=== PATIENT | male | born 1980 ===

== ENCOUNTER 2017-05-14 21:17 | Emergency (ER) | payer MEDICAID ==
[2017-05-14 21:52] VITALS: TEMP 98.7
[2017-05-14 23:37] LABS: EOS # 0.4 K/uL (0.0-0.7); EOS % 3.3 % (0.0-4.0); NRBC % 0.1 % (0.0-2.0)
[2017-05-14 23:40] LABS: BASO % 0.4 % (0.0-2.0); HEMATOCRIT 42.2 % (35.0-51.0); LYMPH # 4.6 K/uL (1.0-4.3); LYMPH % 41.4 % (20.0-40.0); MEAN CELL VOLUME 92.2 fL (80.0-94.0); MEAN CORPUSCULAR HEMOGLOBIN 31.6 pg (27.0-31.0); MEAN CORPUSCULAR HGB CONC 34.3 g/dL (33.0-37.0); MEAN PLATELET VOLUME 9.6 fL (7.2-11.7); MONO % 8.6 % (0.0-10.0); RED CELL DISTRIBUTION WIDTH 13.8 % (11.5-14.5); WHITE BLOOD COUNT 11.1 K/uL (4.8-10.8)
[2017-05-14 23:48] LABS: ALB/GLOB RATIO 1.5 (1.0-2.1); ALKALINE PHOSPHATASE 71 U/L (38-126); ALT/SGPT 93 U/L (21-72); AST/SGOT 50 U/L (17-59); BILIRUBIN,TOTAL 0.8 mg/dL (0.2-1.3); BLOOD UREA NITROGEN 12 mg/dL (9-20); CALCIUM 9.1 mg/dl (8.6-10.4); CARBON DIOXIDE 24 mmol/L (22-30); CHLORIDE 101 mmol/L (98-107); GFR AFRICAN-AMERICAN > 60; GLUCOSE,RANDOM 75 mg/dL (75-110); SODIUM 140 mmol/L (132-148); TOTAL PROTEIN 7.1 g/dL (6.3-8.3)
[2017-05-15] MEDS ORDERED: Iodixanol 320 MG/ML 100 ML BOTTLE IV ONE (00:06)
[2017-05-15] MEDS ORDERED: HYDROmorphone 0.5 mg/0.5 ml ISec IVP STA (00:28)
--- NOTE | 2017-05-15 00:30 | C.PDOC ---
History Of Present Illness 37 year old male with a Hx of chronic back pain s/p fall in 2016 who presents to the ER with a complaint of back pain. Patient states "my whole back hurts" and notes the pain worsens with movement. Patient reports he had an MRI a few weeks ago and a cervical epidural on 05/10/17. Pt notes that since that time, he has had increasing pain throughout his back. Patient has been taking motrin and tylenol with no relief; denies fever, dysuria, hematuria, bladder/bowel incontinence, weakness, numbness, or recent injury. (-) extremity weakness Time Seen by Provider: 05/14/17 22:32 Chief Complaint (Nursing): Back Pain History Per: Patient History/Exam Limitations: no limitations Onset/Duration Of Symptoms: Days Current Symptoms Are (Timing): Still Present Quality Of Discomfort: "Pain" Previous Symptoms: Back Pain Associated Symptoms: None. denies: Incontinence, New Weakness, New Numbness Exacerbating Factor(s): Movement Recent travel outside of the [place]: No Past Medical History Reviewed: Historical Data, Nursing Documentation, Vital Signs Vital Signs: Last Vital Signs Temp 98.7 F 05/14/17 21:44 Pulse 81 05/15/17 02:35 Resp 20 05/15/17 02:35 BP 147/87 05/15/17 02:35 Pulse Ox 100 05/15/17 02:35 - Medical History PMH: Back Problems (s/p fall 10/2015) Family History: States: Unknown Family Hx - Social History Hx Tobacco Use: Yes Hx Alcohol Use: No Hx Substance Use: No - Immunization History Hx Tetanus Toxoid Vaccination: No Hx Influenza Vaccination: No Hx Pneumococcal Vaccination: No Review Of Systems Constitutional: Negative for: Fever Genitourinary: Negative for: Dysuria, Incontinence, Hematuria Musculoskeletal: Positive for: Back Pain Neurological: Negative for: Weakness, Numbness Physical Exam - Physical Exam Appears: Non-toxic, No Acute Distress, Other (pt is sitting on chair, playing on phone, laughing with friend and walking around ED with no evidence of distress) Skin: Normal Color, Warm, Dry Head: Atraumatic, Normacephalic Eye(s): bilateral: Normal Inspection, EOMI Nose: Normal Oral Mucosa: Moist Neck: Paracervical Tenderness ((+) paracervical tenderness), No Step Off Deformity, Other (Left trapezius spasm) Chest: Symmetrical Cardiovascular: Rhythm Regular Respiratory: Normal Breath Sounds Gastrointestinal/Abdominal: Normal Exam, Soft, No Tenderness Back: No CVA Tenderness, Paraspinal Tenderness ((+) diffuse parathoracic and paralumbar tenderness) Extremity: Normal ROM (x4) Extremity: Bilateral: Atraumatic Neurological/Psych: Oriented x3, Normal Speech, Normal Cognition, Normal Motor, Normal Sensation, Other (No focal decits) Gait: Steady ED Course And Treatment - Laboratory Results Result Diagrams: 05/14/17 23:34 05/14/17 23:34 O2 Sat by Pulse Oximetry: 98 (Room air) Pulse Ox Interpretation: Normal - CT Scan/US CT neck/soft tissues Other Rad Studies (CT/US): Read By Radiologist, Radiology Report Reviewed CT/US Interpretation: EXAM: CT Neck With Intravenous Contrast. CLINICAL HISTORY: 37 years old, male; Pain; Neck pain; Prior surgery; Additional info: H /o epidural, pain. TECHNIQUE: Axial computed tomography images of the neck with intravenous contrast. All CT scans at this. facility use one or more dose reduction techniques, viz.: automated exposure control; ma/kV. adjustment per patient size (including targeted exams where dose is matched to indication; i.e. head);. or iterative reconstruction technique. Coronal and sagittal reformatted images were created and reviewed. CONTRAST: 100 mL of [id number] administered intravenously. COMPARISON: No relevant prior studies available. FINDINGS: Nasopharynx: Unremarkable. Oropharynx: No significant tonsillar enlargement. No peritonsillar abscess. Hypopharynx: Unremarkable. Larynx: Unremarkable. Normal epiglottis. Trachea: Unremarkable. Retropharyngeal space: Unremarkable. Submandibular/parotid glands: Unremarkable. Glands are normal in size. Thyroid: Unremarkable. No enlarged or calcified nodules. Bones/joints: Incomplete closure of C1 ring, normal variant. Moderate degenerative disc disease at. C5-C6 level. No acute fracture. Soft tissues: Unremarkable. Vasculature: No acute findings. Lymph nodes: No pathologically enlarged lymph nodes. Lung apices: Multiple subcentimeter cavitary lesions within visualized upper lobes. IMPRESSION: 1. Multiple cavitary lesions within visualized lungs, indeterminate. Consider inflammatory, infectious,. or neoplastic etiologies. 2. Incidental/non-acute findings are described above CT Chest Other Rad Studies (CT/US): Read By Radiologist, Radiology Report Reviewed CT/US Interpretation: EXAM: CT Chest Without Intravenous Contrast. CLINICAL HISTORY: 37 years old, male; Pain; Chest pain. TECHNIQUE: Axial computed tomography images of the chest without intravenous contrast. All CT scans at this. facility use one or more dose reduction techniques, viz.: automated exposure control; ma/kV. adjustment per patient size (including targeted exams where dose is matched to indication; i.e. head);. or iterative reconstruction technique. Coronal and sagittal reformatted images were created and reviewed. COMPARISON: CR - CHEST TWO VIEWS (PA/LAT) 11/03/2015 11:28:47 PM. FINDINGS: Limitations: Lack of intravenous contrast. Lungs: Multiple subcentimeter nodules and cavitary lesions, with upper lobe predominance. No. consolidation. Pleural space: No pneumothorax. No significant effusion. Heart: No cardiomegaly. No significant pericardial effusion. Bones/joints: Small exostosis LEFT 11th rib. No acute fracture. Soft tissues: Mild gynecomastia. Vasculature: Unremarkable. No aneurysm. Lymph nodes: No pathologically enlarged lymph nodes. IMPRESSION: 1. Multiple nodule/cavitary lesions, indeterminate. Consider inflammatory, infectious, or neoplastic. etiologies. 2. Incidental/non-acute findings are described above. CT Head Other Rad Studies (CT/US): Read By Radiologist, Radiology Report Reviewed CT/US Interpretation: EXAM: CT Head With Intravenous Contrast. CLINICAL HISTORY: 37 years old, male; Pain; Headache and other: Epidural a few days ago ; Prior surgery; Additional. info: H/o epidural few days ago, headache. TECHNIQUE: Axial computed tomography images of the head/brain with intravenous contrast. All CT scans at this. facility use one or more dose reduction techniques, viz.: automated exposure control; ma/kV. adjustment per patient size (including targeted exams where dose is matched to indication; i.e. head); . or iterative reconstruction technique. CONTRAST: 100 mL of [id number] administered intravenously. COMPARISON: CT - HEAD W/O CONTRAST 12/01/2015 2:22: 19 AM. FINDINGS: Brain: No intracranial hemorrhage. No mass. No abnormal enhancement. No definite edema. Ventricles: No hydrocephalus. Bones/joints: No acute fracture. Soft tissues: Unremarkable. Sinuses: No acute sinusitis. Mastoid air cells: No mastoid effusion. Orbits: Unremarkable as visualized. IMPRESSION: 1. No acute intracranial abnormality. Progress Note: CT head, CT neck/soft tissues and blood work ordered. toradol, and valium administered. On re-evaluation, pt notes pain persists. Dilaudid ordered. Upon review of CT neck, CT chest ordered. Case dsicussed with Dr Massey who evaluated pt and CTs and agreed upon plan and discharge. Case discussed with Dr Mk Alexandra, pts pain management, who instructed to not given any pain medication rx and he will follow up in the office. Pt was instructed to follow up with pain management in 1-2 days or return to ER if symtpoms persist or worsen. Pt was also given results of CTs and discussed unknown lesions in chest and instructed to follow up with PMD for further evaluation. (-) sob (-) chest pain (-) URI symptoms (-) fever Disposition - Disposition Disposition: HOME/ ROUTINE Disposition Time: 02:09 Condition: STABLE Additional Instructions: Take your CT results to your doctor for further evaluation. Follow up with Dr Alexandra for your back pain. return to ER if symptoms persist or worsen. Instructions: Back Pain (ED) Forms: [facility] (Arabic) - Clinical Impression Clinical Impression: Thoracic back pain, Back pain, Neck pain - Scribe Statement The provider has reviewed the documentation as recorded by the Scribmarcia Parry All medical record entries made by the Denitaibmarcia were at my direction and personally dictated by me. I have reviewed the chart and agree that the record accurately reflects my personal performance of the history, physical exam, medical decision making, and the department course for this patient. I have also personally directed, reviewed, and agree with the discharge instructions and disposition.
--- NOTE | 2017-05-15 00:56 | CT ---
EXAM: CT Head With Intravenous Contrast CLINICAL HISTORY: 37 years old, male; Pain; Headache and other: Epidural a few days ago; Prior surgery; Additional info: H/o epidural few days ago, headache TECHNIQUE: Axial computed tomography images of the head/brain with intravenous contrast. All CT scans at this facility use one or more dose reduction techniques, viz.: automated exposure control; ma/kV adjustment per patient size (including targeted exams where dose is matched to indication; i.e. head); or iterative reconstruction technique. CONTRAST: 100 mL of [id number] administered intravenously. COMPARISON: CT - HEAD W/O CONTRAST 12/01/2015 2:22:19 AM FINDINGS: Brain: No intracranial hemorrhage. No mass. No abnormal enhancement. No definite edema. Ventricles: No hydrocephalus. Bones/joints: No acute fracture. Soft tissues: Unremarkable. Sinuses: No acute sinusitis. Mastoid air cells: No mastoid effusion. Orbits: Unremarkable as visualized. IMPRESSION: 1. No acute intracranial abnormality.
--- NOTE | 2017-05-15 01:01 | CT ---
EXAM: CT Neck With Intravenous Contrast CLINICAL HISTORY: 37 years old, male; Pain; Neck pain; Prior surgery; Additional info: H/o epidural, pain TECHNIQUE: Axial computed tomography images of the neck with intravenous contrast. All CT scans at this facility use one or more dose reduction techniques, viz.: automated exposure control; ma/kV adjustment per patient size (including targeted exams where dose is matched to indication; i.e. head); or iterative reconstruction technique. Coronal and sagittal reformatted images were created and reviewed. CONTRAST: 100 mL of [id number] administered intravenously. COMPARISON: No relevant prior studies available. FINDINGS: Nasopharynx: Unremarkable. Oropharynx: No significant tonsillar enlargement. No peritonsillar abscess. Hypopharynx: Unremarkable. Larynx: Unremarkable. Normal epiglottis. Trachea: Unremarkable. Retropharyngeal space: Unremarkable. Submandibular/parotid glands: Unremarkable. Glands are normal in size. Thyroid: Unremarkable. No enlarged or calcified nodules. Bones/joints: Incomplete closure of C1 ring, normal variant. Moderate degenerative disc disease at C5-C6 level. No acute fracture. Soft tissues: Unremarkable. Vasculature: No acute findings. Lymph nodes: No pathologically enlarged lymph nodes. Lung apices: Multiple subcentimeter cavitary lesions within visualized upper lobes. IMPRESSION: 1. Multiple cavitary lesions within visualized lungs, indeterminate. Consider inflammatory, infectious, or neoplastic etiologies. 2. Incidental/non-acute findings are described above.
--- NOTE | 2017-05-15 01:54 | CT ---
EXAM: CT Chest Without Intravenous Contrast CLINICAL HISTORY: 37 years old, male; Pain; Chest pain TECHNIQUE: Axial computed tomography images of the chest without intravenous contrast. All CT scans at this facility use one or more dose reduction techniques, viz.: automated exposure control; ma/kV adjustment per patient size (including targeted exams where dose is matched to indication; i.e. head); or iterative reconstruction technique. Coronal and sagittal reformatted images were created and reviewed. COMPARISON: CR - CHEST TWO VIEWS (PA/LAT) 11/03/2015 11:28:47 PM FINDINGS: Limitations: Lack of intravenous contrast. Lungs: Multiple subcentimeter nodules and cavitary lesions, with upper lobe predominance. No consolidation. Pleural space: No pneumothorax. No significant effusion. Heart: No cardiomegaly. No significant pericardial effusion. Bones/joints: Small exostosis LEFT 11th rib. No acute fracture. Soft tissues: Mild gynecomastia. Vasculature: Unremarkable. No aneurysm. Lymph nodes: No pathologically enlarged lymph nodes. IMPRESSION: 1. Multiple nodule/cavitary lesions, indeterminate. Consider inflammatory, infectious, or neoplastic etiologies. 2. Incidental/non-acute findings are described above.
[2017-05-15 02:54] VITALS: BP 147/87; PULSE 81; RESP 20
[2017-05-15 06:34] VITALS: O2SAT 98
== END 2017-05-15 02:35 | disposition home or self-care (01) ==
LOC: C.ER 21:17
DX: M54.6 Pain in thoracic spine (principal); M54.5 Low back pain; M54.2 Cervicalgia
CPT/HCPCS: 70460; 70491; 71250; 80053; 85025; 96374; 96375; 99284; J1170; J1885; Q9967

== ENCOUNTER 2017-07-29 19:19 | Emergency (ER) | payer MEDICAID ==
[2017-07-29 20:12] VITALS: BP 163/83; PULSE 85; RESP 20; TEMP 98.6; O2SAT 98
[2017-07-29] MEDS ORDERED: Lidocaine 5% Patch TD STA (21:34)
[2017-07-29] MEDS ORDERED: Morphine 4 MG/ML VIAL ONE (21:39)
[2017-07-29] MEDS ORDERED: Lidocaine 5% Patch TD ONE (21:47)
--- NOTE | 2017-07-29 21:47 | C.PDOC ---
History Of Present Illness 37 yr old male presents to the ER stating he had a spinal fusion done on 06/10 and now has pain to the left side of the neck and numbness radiating down the left arm. Patient describes it as pins and needles. Patient states the pain feels sharp today despite taking percocet at home. Denies fever, chest pain, SOB , nausea, vomiting, headache, numbness or weakness. Time Seen by Provider: 07/29/17 21:01 Chief Complaint (Nursing): Headache History Per: Patient History/Exam Limitations: no limitations Onset/Duration Of Symptoms: Days Current Symptoms Are (Timing): Still Present Quality: Sharp Past Medical History Reviewed: Historical Data, Nursing Documentation, Vital Signs Vital Signs: Last Vital Signs Temp 98.6 F 07/29/17 20:08 Pulse 85 07/29/17 20:08 Resp 20 07/29/17 23:38 BP 163/83 H 07/29/17 20:08 Pulse Ox 98 07/29/17 23:35 - Medical History PMH: Back Problems (s/p fall 10/2015) Family History: States: No Known Family Hx - Social History Hx Tobacco Use: Yes Hx Alcohol Use: No Hx Substance Use: No - Immunization History Hx Tetanus Toxoid Vaccination: No Hx Influenza Vaccination: Yes Hx Pneumococcal Vaccination: No Review Of Systems Except As Marked, All Systems Reviewed And Found Negative. Constitutional: Negative for: Fever Cardiovascular: Negative for: Chest Pain Respiratory: Negative for: Shortness of Breath Gastrointestinal: Negative for: Nausea, Vomiting Musculoskeletal: Positive for: Neck Pain (Left sided neck pain) Neurological: Negative for: Weakness, Numbness, Headache Physical Exam - Physical Exam Appears: Non-toxic, No Acute Distress Skin: Warm, Dry, No Rash Head: Atraumatic, Normacephalic Eye(s): bilateral: Normal Inspection, PERRL, EOMI Ear(s): Bilateral: Normal Oral Mucosa: Moist Throat: No Erythema, No Exudate Neck: Normal ROM, No Midline Cervical Tenderness, No Paracervical Tenderness, Other ((+) Muscle spasm to the left trapezius) Chest: Symmetrical, No Tenderness Cardiovascular: Rhythm Regular, No Friction Rub, No Murmur Respiratory: Normal Breath Sounds, No Rales, No Rhonchi, No Stridor, No Wheezing Gastrointestinal/Abdominal: Soft, No Tenderness Back: Normal Inspection, No CVA Tenderness Neurological/Psych: Oriented x3, Normal Speech, Normal Cranial Nerves, Normal Motor, Normal Sensation Gait: Steady ED Course And Treatment O2 Sat by Pulse Oximetry: 98 (RA) Pulse Ox Interpretation: Normal Medical Decision Making Medical Decision Making: PLAN: * X-Ray - Cervical Spine * Lidoderm TD * Valium PO * Morphine IM On re-exam, the patient reports improvement of symptoms. Lungs are CTA, heart is RRR, abdomen is soft, non-tender and tolerating PO well. Ambulatory in the ED steady gait. Follow up with the medical doctor within 1-2 days. Return if worsened. Disposition - Disposition Referrals: Mack Andrade MD [Medical Doctor] - Disposition: HOME/ ROUTINE Disposition Time: 23:24 Condition: GOOD Additional Instructions: Follow up with the medical doctor within 1-2 days. Return if worsened. Prescriptions: diaZEpam [Valium] 5 mg PO TID #21 tab Lidocaine 5% [Lidoderm] 1 patch TP DAILY #10 patch Instructions: Cervical Radiculopathy (ED), Knee Pain (ED) Forms: [employer] (Icelandic) - Clinical Impression Clinical Impression: Cervical radiculopathy, Knee effusion - PA / [employer] / Resident Statement MD/DO has reviewed & agrees with the documentation as recorded. - Scribe Statement The provider has reviewed the documentation as recorded by the Scribe Donna Borden All medical record entries made by the Scribe were at my direction and personally dictated by me. I have reviewed the chart and agree that the record accurately reflects my personal performance of the history, physical exam, medical decision making, and the department course for this patient. I have also personally directed, reviewed, and agree with the discharge instructions and disposition.
--- NOTE | 2017-07-30 09:23 | RAD ---
PROCEDURE: Left Knee Radiographs. HISTORY: Pain. COMPARISON: None. FINDINGS: BONES: Normal. No fracture. JOINTS: Normal. No osteoarthritis. JOINT EFFUSION: None. OTHER FINDINGS: None. IMPRESSION: Normal radiographs of the left knee.
--- NOTE | 2017-07-30 09:24 | RAD ---
PROCEDURE: Cervical Spine Radiographs. HISTORY: Pain. COMPARISON: None. FINDINGS: BONES: Vertebral bodies maintained in height. Status post anterior fixation C5-6 with artificial disc spacer. Normal vertebral alignment maintained. The atlantoaxial articulation is intact. The odontoid process is suboptimally evaluated. DISC SPACES: Normal. SOFT TISSUES: Normal. No prevertebral soft tissue swelling. OTHER FINDINGS: None. IMPRESSION: Anterior fixation at C5-6. No evidence of fracture or dislocation.
== END 2017-07-29 23:38 | disposition home or self-care (01) ==
LOC: C.ER 19:19
DX: M54.12 Radiculopathy, cervical region (principal); M25.462 Effusion, left knee
CPT/HCPCS: 72040; 73564; 96372; 99284; J2270

== ENCOUNTER 2017-11-25 19:19 | Emergency (ER) | payer SELFPAY ==
[2017-11-25] MEDS ORDERED: DiphenhydrAMINE 50 mg/ml Inj IVP STA (20:21)
[2017-11-25] MEDS ORDERED: Sodium Chloride 0.9% 1,000 ML IV ONE (20:22)
[2017-11-25] MEDS ORDERED: DiphenhydrAMINE 50 mg/ml Inj ONE (20:33)
[2017-11-25 20:55] LABS: BASO # 0.2 K/uL (0.0-0.2); BASO % 1.3 % (0.0-2.0); EOS # 0.1 K/uL (0.0-0.7); EOS % 0.4 % (0.0-4.0); LYMPH # 2.6 K/uL (1.0-4.3); LYMPH % 21.8 % (20.0-40.0); MEAN CELL VOLUME 92.4 fL (80.0-94.0); MEAN CORPUSCULAR HEMOGLOBIN 32.9 pg (27.0-31.0); MEAN CORPUSCULAR HGB CONC 35.6 g/dL (33.0-37.0); MEAN PLATELET VOLUME 9.3 fL (7.2-11.7); MONO % 8.3 % (0.0-10.0); NEUT # 8.1 K/uL (1.8-7.0); NEUT % 68.2 % (50.0-75.0); RBC 4.57 Mil/uL (4.40-5.90); RED CELL DISTRIBUTION WIDTH 12.8 % (11.5-14.5); WHITE BLOOD COUNT 11.9 K/uL (4.8-10.8)
[2017-11-25 21:07] LABS: ALB/GLOB RATIO 1.3 (1.0-2.1); CALCIUM 9.6 mg/dl (8.6-10.4); GFR AFRICAN-AMERICAN > 60; GFR NON-AFRICAN AMERICAN > 60; LIPASE 65 U/L (23-300)
[2017-11-25 21:10] LABS: ALT/SGPT 110 U/L (21-72); AST/SGOT 87 U/L (17-59); BLOOD UREA NITROGEN 16 mg/dL (9-20)
--- NOTE | 2017-11-25 21:56 | C.PDOC ---
History Of Present Illness 37 year old male, with history of cervical fusion, presents to the ED for evaluation of epigastric abdominal pain which began after he ate salmon last night. Patient states the pain worsened when he woke up this morning and was associated with diarrhea and innumerable episodes of vomiting. Patient also reports facial flushing and headache. He reports a burning sensation to his throat and is concerned about throat swelling. He denies fever, chills, difficulty handling secretions, shortness of breath, hematemesis, bright red blood per rectum, prior history of food allergies. Chief Complaint (Nursing): Allergic Reaction History Per: Patient History/Exam Limitations: no limitations Onset/Duration Of Symptoms: Hrs Current Symptoms Are (Timing): Still Present Location Of Pain/Discomfort: Epigastric Quality Of Discomfort: "Pain" Associated Symptoms: Nausea, Vomiting, Diarrhea. denies: Fever, Chills Additional History Per: Patient Past Medical History Reviewed: Historical Data, Nursing Documentation, Vital Signs Vital Signs: Last Vital Signs Temp 98.3 F 11/26/17 02:14 Pulse 76 11/26/17 02:14 Resp 18 11/26/17 02:14 BP 118/67 11/26/17 02:14 Pulse Ox 98 11/26/17 04:50 - Medical History PMH: Back Problems (s/p fall 10/2015) Surgical History: No Surg Hx Family History: States: Unknown Family Hx - Social History Hx Tobacco Use: Yes Hx Alcohol Use: No Hx Substance Use: No - Immunization History Hx Tetanus Toxoid Vaccination: No Hx Influenza Vaccination: Yes Hx Pneumococcal Vaccination: No Review Of Systems Constitutional: Negative for: Fever, Chills Gastrointestinal: Positive for: Nausea, Vomiting, Abdominal Pain, Diarrhea Neurological: Positive for: Headache Physical Exam - Physical Exam Appears: Non-toxic, No Acute Distress Skin: Warm, Dry, Rash (petechial rash to facial region ), No Cyanotic Head: Atraumatic, Normacephalic Eye(s): bilateral: Normal Inspection Nose: Normal, No Discharge Oral Mucosa: Moist Throat: Normal, No Erythema, No Exudate, No Drooling Neck: Normal ROM, Supple Chest: Symmetrical, No Deformity, No Tenderness, Other (S1 and S2 within normal limits ) Cardiovascular: Rhythm Regular, No Murmur Respiratory: Normal Breath Sounds, No Rales, No Rhonchi, No Wheezing Gastrointestinal/Abdominal: Bowel Sounds (present ), Soft, Tenderness ( epigastric and LUQ ), Guarding, No Rebound, No Other (organomegaly ) Extremity: Normal ROM, Capillary Refill (less than 2 seconds ), No Other (edema or clubbing ) Neurological/Psych: Oriented x3, Normal Speech, Normal Cognition, Normal Cranial Nerves (2-12), Other (sensorimotor within normal limits ) ED Course And Treatment - Laboratory Results Result Diagrams: 11/25/17 20:51 11/25/17 20:51 O2 Sat by Pulse Oximetry: 98 (on RA) Pulse Ox Interpretation: Normal - CT Scan/US gall bladder Other Rad Studies (CT/US): Read By Radiologist Progress Note: no acute GB pathology Medical Decision Making Medical Decision Making: Impression: gastritis vs gastroenteritis vs GERD vs food poisoning Progress: Bloodwork ordered and reviewed. Benadryl IVP, Compazine IVP, Pepcid IVP and IV Fluids administered. Labs reviewed: Blood work is grossly normal. Lipase wnl 22:01 Patient continuing to complain of pain, ordered Morphine 4 mg IV Disposition - Disposition Referrals: [facility] [Outside] Disposition: HOME/ ROUTINE Disposition Time: 04:51 Condition: GOOD Prescriptions: Metoclopramide HCl [Reglan] 10 mg PO TID PRN #15 tablet PRN Reason: Nausea/Vomiting Pantoprazole Sodium [Protonix] 40 mg PO DAILY #14 tab Instructions: Gastritis, Food Poisoning Forms: [facility] (Divehi) Print Language: CHINESE - Clinical Impression Clinical Impression: Food poisoning, Gastritis - Scribe Statement The provider has reviewed the documentation as recorded by the Scribe (Vibha Pelletier) Provider Attestation: All medical record entries made by the Scribe were at my direction and personally dictated by me. I have reviewed the chart and agree that the record accurately reflects my personal performance of the history, physical exam, medical decision making, and the department course for this patient. I have also personally directed, reviewed, and agree with the discharge instructions and disposition.
[2017-11-25] MEDS ORDERED: Morphine 4 MG/ML VIAL IV ONE (22:01)
[2017-11-25] MEDS ORDERED: Morphine 4 MG/ML VIAL ONE (22:11)
[2017-11-26 02:15] VITALS: BP 118/67; PULSE 76; RESP 18; TEMP 98.3
--- NOTE | 2017-11-26 02:36 | US ---
EXAM: US Abdomen Limited, Right Upper Quadrant CLINICAL HISTORY: 37 years old, male; Pain; Abdominal pain; Generalized; Additional info: Lft abnl, abd pain TECHNIQUE: Real-time ultrasound of the right upper quadrant with image documentation. COMPARISON: No relevant prior studies available. FINDINGS: Artifacts: Limited due to bowel gas shadowing. Limited due to shadowing from the ribs and patient's body habitus. Limited patient cooperation due to patient's inability to hold his breath. The patient was sleeping during examination. Liver: The liver measures 16.4 cm. Limited evaluation of the liver due to shadowing. Echogenic fatty heterogeneous liver. There is hepatic pedal flow in the portal vein. Gallbladder: The gallbladder wall measures 3 mm.There was no right upper quadrant tenderness during the sonographic examination. Correlation with patient's pain medication status is recommended. No gallstones. Common bile duct: Normal common bile duct measuring 4 mm. Pancreas: The pancreas is not well-seen. Right kidney: The right kidney measures 10.5 x 4.0 x 4.6 cm. No stones. No hydronephrosis. Aorta: The proximal aorta measures 1.9 cm the visualized portions of the aorta appears unremarkable. Inferior vena cava: IVC seen. IMPRESSION: No acute findings.
[2017-11-26 04:50] VITALS: O2SAT 98
== END 2017-11-26 02:41 | disposition home or self-care (01) ==
LOC: C.ER 19:19
DX: T62.91XA Toxic effect of unspecified noxious substance eaten as food, accidental (unintentional), initial encounter (principal); K29.70 Gastritis, unspecified, without bleeding
CPT/HCPCS: 76705; 80053; 83690; 85025; 96361; 96374; 96375; 99284; J0780; J1200; J2270; J7040

== ENCOUNTER 2018-01-20 20:42 | Emergency (ER) | payer MEDICAID ==
[2018-01-20 21:00] VITALS: BP 168/110; PULSE 82; RESP 20; TEMP 99.4; O2SAT 98
--- NOTE | 2018-01-20 21:18 | C.PDOC ---
History Of Present Illness 37 year old male presents to ED with complaints of right knee pain starting today and has noticed swelling to knee throughout the day. He took total of 5 ibuprofen today without significant relief. He reports pain is aching to throbbing and also feels burning, and the pain is worsened with bending or walking. Denies any fever, injury, numbness, weakness or calf pain. Patient had knee surgery in 2011 involving ACL and MCL repair. Time Seen by Provider: 01/20/18 21:08 Chief Complaint (Nursing): Lower Extremity Problem/Injury History Per: Patient History/Exam Limitations: no limitations Onset/Duration Of Symptoms: Days Current Symptoms Are (Timing): Still Present Recent travel outside of the [place]: No Additional History Per: Patient - Knee Description Of Injury: Other Currently Unable To: Bend Or Move Alleviating Factor(s): OTC Pain Medication Past Medical History Reviewed: Historical Data, Nursing Documentation, Vital Signs Vital Signs: Last Vital Signs Temp 99.4 F 01/20/18 20:55 Pulse 82 01/20/18 20:55 Resp 20 01/20/18 20:55 BP 168/110 H 01/20/18 20:55 Pulse Ox 98 01/20/18 22:00 - Medical History PMH: Back Problems (s/p fall 10/2015) Other Surgeries: ACL and MCL repairs Family History: States: Unknown Family Hx - Social History Hx Tobacco Use: Yes Hx Alcohol Use: No Hx Substance Use: No - Immunization History Hx Tetanus Toxoid Vaccination: No Hx Influenza Vaccination: Yes Hx Pneumococcal Vaccination: No Review Of Systems Constitutional: Negative for: Fever, Chills Cardiovascular: Negative for: Chest Pain Respiratory: Negative for: Shortness of Breath Musculoskeletal: Positive for: Leg Pain Skin: Negative for: Rash Neurological: Negative for: Weakness, Numbness Physical Exam - Physical Exam Appears: Non-toxic, No Acute Distress Skin: Normal Color, Warm, Dry Head: Atraumatic, Normacephalic Eye(s): bilateral: Normal Inspection Extremity: Normal ROM, No Calf Tenderness, Capillary Refill (< 2 seconds), No Deformity, No Swelling Pulses: Left Dorsalis Pedis: Normal, Right Dorsalis Pedis: Normal Neurological/Psych: Oriented x3, Normal Speech, Normal Motor, Normal Sensation Gait: Steady Additional Physical Exam Comments: Right Lower extremity: Swelling to knee. Tenderness to lateral and posterior knee; pain with flexion of the knee unable to fully flex over 45 degrees, normal extension. Normal skin tone, no erythema or ecchymosis, no tactile warmth. No calf tenderness. Ankle and foot normal ROM and non-tender. ED Course And Treatment O2 Sat by Pulse Oximetry: 98 (ON RA) Pulse Ox Interpretation: Normal Medical Decision Making Medical Decision Making: Impression: right knee pain Plan: * Right knee X-Ray * Toradol 60 mg IM Xray shows mild effusion. Knee brace applied by RN and patient instructed on crutch walking. Recommend rest, ice and analgesics. Follow up with orthopedic if the symptoms persist Disposition Counseled Patient/Family Regarding: Studies Performed, Diagnosis, Need For Followup, Rx Given - Disposition Referrals: Gerardo Kim MD [Staff Provider] - Disposition: HOME/ ROUTINE Disposition Time: 21:57 Condition: STABLE Additional Instructions: Rx sent to [facility]. Please apply ice to area 15 minutes three times a day. Take Motrin as needed for pain every 6 hours, with food to not upset stomach. Follow up with orthopedic if pain persists Prescriptions: Ibuprofen [Motrin] 600 mg PO Q8 #30 tab Instructions: Knee Pain (DC) Forms: [facility] (Persian), Work Excuse - POA Present On Arrival: None - Clinical Impression Clinical Impression: Knee effusion, right, Knee pain, right - PA / TELEGRAPH INSPECTOR / Resident Statement MD/DO has reviewed & agrees with the documentation as recorded. - Scribe Statement The provider has reviewed the documentation as recorded by the Scribe Mahad Jang All medical record entries made by the Scribe were at my direction and personally dictated by me. I have reviewed the chart and agree that the record accurately reflects my personal performance of the history, physical exam, medical decision making, and the department course for this patient. I have also personally directed, reviewed, and agree with the discharge instructions and disposition.
--- NOTE | 2018-01-21 07:57 | RAD ---
PROCEDURE: Right Knee Radiographs. HISTORY: pain to knee COMPARISON: Right knee x-rays 07/29/2017 FINDINGS: BONES: No fracture identified. Patient is status post ACL reconstruction. JOINTS: No dislocation seen. Bony articulations appear maintained. JOINT EFFUSION: Moderate joint effusion. OTHER FINDINGS: None. IMPRESSION: No fracture or dislocation identified. Moderate joint effusion.
== END 2018-01-20 22:13 | disposition home or self-care (01) ==
LOC: C.ER 20:42
DX: M25.461 Effusion, right knee (principal); M25.561 Pain in right knee; Z72.0 Tobacco use
CPT/HCPCS: 73562; 96372; 99283; J1885

== ENCOUNTER 2018-12-28 17:11 | Emergency (ER) | payer MEDICAID ==
--- NOTE | 2018-12-28 19:02 | C.PDOC ---
History Of Present Illness 38 y/o M c PMHx kidney stone p/w chest pain, syncope, fever, back pain, dysuria, dyspnea x 1 day. Patient states that he awoke this morning feeling pressure on his chest. He went to bathroom and vomited twice and then lost consciousness, woke up on floor. He states that since then, he has had fever, shortness of breath. He also reports L sided back pain that radiates down the legs, which he states feels different than his herniated disc pain. He reports that he is urinating often and has pain at the end of urination. He denies any sexual activity with anyone but his fiance for the past 7 years or so and also states he tested negative for STDs recently. He states he takes testosterone to go to the gym. Time Seen by Provider: 12/28/18 18:47 Chief Complaint (Nursing): Chest Pain Past Medical History Vital Signs: Last Vital Signs Temp 99.7 F H 12/28/18 17:31 Pulse 87 12/28/18 17:31 Resp 20 12/28/18 17:31 BP 151/80 H 12/28/18 17:31 Pulse Ox 95 12/28/18 17:31 - Medical History PMH: Back Problems (s/p fall 10/2015), HTN, Kidney Stones, Chronic Kidney Disease Family History: States: Unknown Family Hx - Social History Hx Tobacco Use: Yes Hx Alcohol Use: No Hx Substance Use: No - Immunization History Hx Tetanus Toxoid Vaccination: No Hx Influenza Vaccination: Yes Hx Pneumococcal Vaccination: No Review Of Systems Except As Marked, All Systems Reviewed And Found Negative. Skin: Negative for: Rash Neurological: Negative for: Seizures Physical Exam - Physical Exam Additional Physical Exam Comments: gen nad head nc/at eyes perrl ent mmm neck supple cv reg rate lungs cta b/l chest no tenderness abd soft, nt back L sided tenderness, positive straight leg raise skin no rash extre no edema neuro alert ED Course And Treatment - Laboratory Results Result Diagrams: 12/28/18 19:07 12/28/18 19:07 O2 Sat by Pulse Oximetry: 95 Against Medical Advice - AMA Patient Left Against Medical Advice: The patient declines admission to the hospital and wishes to leave the Emergency Department. This action is against my medical advice. This decision was made with informed refusal. The patient was told that admission to the hospital is necessary. Explanation of the reasons why were discussed. The risks of leaving were explained to the patient and include, but are not limited to, worsening of known or currently unknown conditions, permanent disability and from undiagnosed or untreated conditions. The patient has the capacity to make this informed decision and understands my explanation of the current medical problem and risks of leaving. The patient voluntarily accepts these risks and signed an AMA form documenting our conversation. The patient was given the opportunity to ask questions and reconsider. The patient was encouraged to return to the Emergency Department at any time for further care. Medical Decision Making Medical Decision Making: EKG NSR 77 bpm, no ST/T wave changes Differential includes but not limited to acs, arrhythmia, vasovagal, pe, influen za, kidney stone, uti, msk pain. CT A/P Impression: No acute intra-abdominal or pelvic abnormality. Mildly enlarged prostate gland. Clinical correlation advised. CTA Chest Impression: 1. No evidence for pulmonary embolism 2. The lungs are clear. 3. The heart size is normal. 4. Scans through the upper abdomen demonstrate no acute abnormalities. 5. Minimal degenerative spine changes. Troponin negative. Influenza negative. UA shows 14 WBCs. Offered admission but patient wished to leave AMA. Disposition - Disposition Referrals: Jacob Jarquin MD [Medical Doctor] - Disposition: AGAINST MEDICAL ADVICE Disposition Time: 23:11 Condition: UNKNOWN Prescriptions: Ciprofloxacin [Cipro] 500 mg PO BID #14 tab Instructions: Syncope (Fainting) Forms: [employer] (Faroese) - Clinical Impression Clinical Impression: Chest pain, Syncope
[2018-12-28 19:20] LABS: SQUAMOUS EPITHIAL < 1 /hpf (0-5); URINE BACTERIA RARE (<OCC); URINE BILIRUBIN NEGATIVE (NEGATIVE); URINE BLOOD NEGATIVE (NEGATIVE); URINE CLARITY Clear (Clear); URINE COLOR Yellow (YELLOW); URINE GLUCOSE (UA) NORMAL (Normal); URINE LEUKOCYTE ESTERASE TRACE Leu/uL (Negative); URINE PROTEIN NEGATIVE (NEGATIVE); URINE UROBILINOGEN NORMAL mg/dL (0.2-1.0)
[2018-12-28 19:25] LABS: ALB/GLOB RATIO 1.3 (1.0-2.1); ALBUMIN 4.8 g/dL (3.5-5.0); ALT/SGPT 59 U/L (21-72); AST/SGOT 41 U/L (17-59); BLOOD UREA NITROGEN 13 mg/dL (9-20); CALCIUM 10.2 mg/dl (8.6-10.4); GFR NON-AFRICAN AMERICAN > 60; LIPASE 89 U/L (23-300)
[2018-12-28 19:37] LABS: CK-MB 0.93 ng/mL (0.0-3.38)
[2018-12-28 19:53] LABS: BASO # 0.2 K/uL (0.0-0.2); BASO % 1.1 % (0.0-2.0); EOS # 0.1 K/uL (0.0-0.7); EOS % 0.3 % (0.0-4.0); HEMOGLOBIN 14.1 g/dL (12.0-18.0); LYMPH # 4.9 K/uL (1.0-4.3); LYMPH % 24.9 % (20.0-40.0); MEAN CELL VOLUME 94.1 fL (80.0-94.0); MEAN CORPUSCULAR HEMOGLOBIN 32.3 pg (27.0-31.0); MEAN CORPUSCULAR HGB CONC 34.4 g/dL (33.0-37.0); MONO # 1.7 K/uL (0.0-0.8); MONO % 8.5 % (0.0-10.0); NEUT # 12.8 K/uL (1.8-7.0); NEUT % 65.2 % (50.0-75.0); NRBC % 0.1 % (0.0-2.0); RBC 4.35 Mil/uL (4.40-5.90); RED CELL DISTRIBUTION WIDTH 12.7 % (11.5-14.5); WHITE BLOOD COUNT 19.6 K/uL (4.8-10.8)
[2018-12-28 20:00] LABS: INR 1.1; PROTHROMBIN TIME 12.5 SECONDS (9.7-12.2)
[2018-12-28] MEDS ORDERED: Morphine 4 MG/ML VIAL ONE (21:33)
[2018-12-28] MEDS ORDERED: Iodixanol 320 MG/ML 100 ML BOTTLE IV ONE (21:37)
[2018-12-28 23:12] VITALS: O2SAT 95
[2018-12-29 00:14] VITALS: BP 122/46; PULSE 78; RESP 16; TEMP 98.8
--- NOTE | 2018-12-29 08:24 | CT ---
Date of service: 12/28/2018 PROCEDURE: CT Abdomen and Pelvis without intravenous contrast HISTORY: Left flank pain. COMPARISON: None. TECHNIQUE: Multiple contiguous axial images were performed through the abdomen and pelvis without the use of intravenous contrast. Subsequently, sagittal and coronal reformatted images were obtained. Radiation dose: Total exam DLP = 1216.43 mGy-cm. This CT exam was performed using one or more of the following dose reduction techniques: Automated exposure control, adjustment of the mA and/or kV according to patient size, and/or use of iterative reconstruction technique. FINDINGS: LOWER THORAX: Unremarkable. LIVER: Unremarkable. No gross lesion or ductal dilatation. GALLBLADDER AND BILE DUCTS: Unremarkable. PANCREAS: Unremarkable. No gross lesion or ductal dilatation. SPLEEN: Unremarkable. ADRENALS: Unremarkable. No mass. KIDNEYS AND URETERS: Unremarkable. No hydronephrosis. No solid mass. VASCULATURE: Unremarkable. No aortic aneurysm. No aortic atherosclerotic calcification or mural plaque present. BOWEL: Unremarkable. No obstruction. No gross mural thickening. APPENDIX: Unremarkable. Normal appendix. PERITONEUM: Unremarkable. No free fluid. No free air. LYMPH NODES: Shotty para-aortic and inguinal lymph nodes. Shotty mesenteric lymph nodes. BLADDER: Underdistended urinary bladder. Reproductive: Heterogeneous prostate and seminal vesicles. Clinical correlation. BONES: Degenerative changes in the spine. Posterior disc osteophyte complex at the L5-S1 level. OTHER FINDINGS: None. IMPRESSION: Heterogeneous and somewhat prominent prostate and seminal vesicles. Clinical correlation. Underdistended urinary bladder. Posterior disc osteophyte complex at the L5-S1 level. Clinical correlation. A preliminary report was generated at 8:12 p.m. on 12/28/[address] Kip Amaya from [employer]. This case was placed in the PA review folder.
--- NOTE | 2018-12-29 08:25 | CT ---
Date of service: 12/28/2018 PROCEDURE: CT Chest with contrast (Pulmonary Angiogram) HISTORY: dyspnea, r/o PE COMPARISON: Anything TECHNIQUE: Axial computed tomography images were obtained of the chest in the pulmonary arterial phase of enhancement. Coronal and sagittal reformatted images were created and reviewed. Intravenous contrast dose: 100 mL Visipaque 320 Radiation dose: Total exam DLP = 616.42 mGy-cm. This CT exam was performed using one or more of the following dose reduction techniques: Automated exposure control, adjustment of the mA and/or kV according to patient size, and/or use of iterative reconstruction technique. FINDINGS: PULMONARY ARTERIES: There are no filling defects in the pulmonary arteries to suggest acute pulmonary embolism. AORTA: No acute findings. No thoracic aortic aneurysm. No aortic atherosclerotic calcification or mural plaque present. LUNGS: The lungs are well inflated. There is scattered centrilobular emphysema in the lungs. No nodule, mass or pulmonary consolidation. PLEURAL SPACES: No effusion or pneumothorax. HEART: No cardiomegaly. No significant pericardial effusion. LYMPH NODES: No pathologic mediastinal or hilar lymphadenopathy. BONES, CHEST WALL: Within normal limits for the patient's age. No fracture or destructive lesion OTHER FINDINGS: None. IMPRESSION: No CTA evidence for acute pulmonary embolism. Clear lungs. A preliminary report was provided by [employer].
--- NOTE | 2018-12-29 09:37 | RAD ---
Chest x-ray two views HISTORY: Chest pain. Comparison: 11/03/2015 Findings: Small nodular density at the right lung base may represent prominent vessel on end. Repeat study in a 3-6 month interval may be helpful to ensure stability. Additional nodular density at the left lung base may represent confluence of shadows with ribs and vessels. No focal infiltrate or effusion. Heart size is within normal limits. Impression: Small nodular density at the right lung base may represent prominent vessel on end. Repeat study in a 3-6 month interval may be helpful to ensure stability. Additional nodular density at the left lung base may represent confluence of shadows with ribs and vessels. No focal infiltrate or effusion. This case was placed in the PA review folder.
== END 2018-12-28 23:10 | disposition left against medical advice (07) ==
LOC: C.ER 17:11
DX: R55 Syncope and collapse (principal); R07.9 Chest pain, unspecified; I12.9 Hypertensive chronic kidney disease with stage 1 through stage 4 chronic kidney disease, or unspecified chronic kidney disease; N18.9 Chronic kidney disease, unspecified; Z72.0 Tobacco use
CPT/HCPCS: 71046; 71275; 74176; 80053; 81001; 82550; 82553; 83690; 84484; 85025; 85378; 85610; 85730; 87086; 87181; 87804; 96374; 96375; 99285; J1885; J2270; Q9967